=== PATIENT | female | born 1930 | race Caucasian/White ===

== ENCOUNTER 2019-05-27 12:20 | Inpatient (IN) | payer MEDICARE ==
--- NOTE | 2019-05-27 12:44 | CT ---
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 There are f oci of decreased attenuation in the periventricular white matter, consistent with chronic small vessel ischemic disease. No evidence of acute infarct, hemorrhage, midline shift or abnormal extra-axial fluid collections is seen. The ventricular size is appropriate and the basilar cisterns are patent. Postop changes of right craniotomy are redemonstrated. The visualized paranasal sinuses and mastoid air cells are well aerated. IMPRESSION: No CT evidence of acute intracranial process. Discussed over the telephone with ER physician Dr. Yann Arizmendi at 12:39 PM
[2019-05-27 13:03] LABS: #Lymphocytes 0.9 thou/uL (1.20-3.40); #Monocytes 0.8 thou/uL (0.11-0.59); #Neutrophils 6.2 thou/uL (1.40-6.50); %Basophils 0.6 % (0.0-1.0); %Eosinophils 0.2 % (0.0-10.0); %Lymphocytes 10.9 % (21.0-51.0); %Monocytes 9.7 % (0.0-10.0); %Neutrophils 78.7 % (42.0-75.0); Hemoglobin 13.2 g/dL (12.0-16.0); Mean Corpuscular HGB CONC 33.1 g/dL (32.0-36.0); Mean Corpuscular Hemoglobin 30.1 pg (27.0-31.0); Mean Corpuscular Volume 90.7 fL (78.0-98.0); Mean Platelet Volume 8.1 fL (7.4-10.4); Platelet Count 159 thou/uL (130-400); RBC Distribution Width 11.5 % (11.5-14.5); Red Blood Cell (RBC) Count 4.38 mill/uL (4.20-5.40); White Blood Cell (WBC) Count 7.8 thou/uL (4.8-10.8)
[2019-05-27 13:03] LABS: Bacteria/HPF 3+ HPF (None Seen); Bilirubin Negative (Negative); Blood, Urine Negative (Negative); Clarity Clear (Clear); Glucose, Urine (Dipstick) Normal (Negative); Leukocyte 250 Leu/uL (Negative); Nitrite Negative (Negative); Protein, Urine (Dipstick) 10 mg/dL (Neg-Trace); RBC/HPF 0-3 HPF (0-3); Squamous Epithelial None Seen HPF (0-3); Urobilinogen Normal mg/dL (Less than 2)
[2019-05-27 13:09] LABS: ALT (SGPT) Less than 7 U/L (8-55); AST (SGOT) 18 U/L (5-34); Albumin 3.9 g/dL (3.4-4.8); Alkaline Phosphatase 56 U/L (40-110); Anion Gap 11 mmol/L (10-20); BUN (Urea Nitrogen) 11 mg/dL (9.8-20.1); Bilirubin, Total 1.6 mg/dL (0.2-1.2); CK (CPK) 113 U/L (29-168); Calc. Creatinine Clearance 0 mL/min (70-130); Calcium 8.8 mg/dL (7.8-10.44); Carbon Dioxide 23 mmol/L (23-31); Chloride 93 mmol/L (98-107); Estimated GFR-MDRD 52; Globulin 2.8 g/dL (2.4-3.5); Glucose 111 mg/dL (83-110); Lipase 7 U/L (8-78); Potassium 4.1 mmol/L (3.5-5.1); Protein, Total 6.7 g/dL (6.0-8.3); Sodium 123 mmol/L (136-145)
--- NOTE | 2019-05-27 13:12 | RAD ---
XR Chest 1 View Portable HISTORY: Altered mental status, left-sided weakness COMPARISON: 05/25/2010 FINDINGS: The heart size is borderline. The aorta is tortuous. Left-sided pacemaker device is present. The emma gs are expanded with prominent interstitial markings. No lobar consolidation, pneumothoraces or large effusions are seen.
[2019-05-27] MEDS ORDERED: Ondansetron PF 4 MG/2 ML Vial IVP PRN (13:57)
[2019-05-27] MEDS ORDERED: Loperamide HCl 2 MG CAP PO PRN (13:57)
[2019-05-27] MEDS ORDERED: Ondansetron ODT 4 MG TAB PO PRN (13:57)
[2019-05-27] MEDS ORDERED: Bisacodyl 5 MG TAB PO PRN (13:57)
[2019-05-27] MEDS ORDERED: Acetaminophen 325 MG TAB PO PRN (13:57)
--- NOTE | 2019-05-27 14:01 | RAD ---
SHUNTOGRAM: Date: 05/27/2019 A total of 5 views obtained, including AP and lateral views of the skull with AP views of chest and a bdomen. INDICATION: Weakness. Evaluate for shunt. FINDINGS: Correlation is made to CT head dated 05/27/2019. Patient does not have a [employer] shunt catheter. There are postoperative changes involving the calvarium with postoperative changes in the right temporal bone and there are clippings seen at the base of the skull midline suggesting old aneurysm clip. Visualized lung santiago show vascular congestion and cardiomegaly with interstitial congestion. There are pacemaker leads in place. Bowel gas pattern is unremarkable with scattered stool and gas throughout the colon. IMPRESSION: Patient does not have a F[employer] REPORTER shunt catheter. POS: [facility]
[2019-05-27] MEDS ORDERED: diphenhydrAMINE 25 MG CAP PO PRN (14:02)
[2019-05-27] MEDS ORDERED: Labetalol HCl 100 MG/20 ML VIAL SLOW IVP PRN (14:02)
[2019-05-27] MEDS ORDERED: Docusate 100 MG CAP PO PRN (14:02)
[2019-05-27] MEDS ORDERED: Benzonatate 100 MG CAP PO PRN (14:02)
[2019-05-27] MEDS ORDERED: cefTRIAXone\\ROCEPHIN 1 GM VIAL ONE (14:08)
[2019-05-27] MEDS ORDERED: Diltiazem 125 MG/25 ML ONE (14:15)
[2019-05-27] MEDS ORDERED: Diltiazem 125 MG in Sodium Chloride 0.9% 100 ML IVPB SCH (14:30)
--- NOTE | 2019-05-27 14:35 | PDOC.HHP ---
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 Patient accompanied by and family who are able to aid in history. Patient with confusion which started last light, was not acting herself and suffered a fall out of bed. states that she hit her forehead on the bed, though no other trauma to limbs, there is not break in the skin or laceration. Patient with old and new bruising on the skin consistent with antiplatelent therapy and minor trauma. Patient alert to self, she knows she in in the hospital and knows her family at bedside. Patient very agitated and crawling out of bed trying to remove covers and clothes. Patient will speak in full in short sentences when asked simple questions, though she gets distracted very quickly and is fidgeting with the left arm. Patient not a tPA candidate for low NIH score and unknown timing. Patient with CT scan of the head that was negative for acute process. Patient has had UTI and currently on ABX, though patient and family do not recall the name. Patient does drink excessive fluids at baseline and states she is always sipping on something with water. Patient found to have to have hyponatremia with sodium of 123 on admission. Admitted to stroke unit for close management. Hospitalist ROS - Review of Systems All other systems reviewed; all pertinent +/- noted in HPI/Subj Hospitalist History - Past Medical History Source: patient, family, old records Cardiac: reports: AFIB, HTN. denies: CAD, CHF Pulmonary: denies: CVA/TIA/stroke PUBLICITY CONSULTANT: reports: Other (Cerebral aneurysm s/p shunt). denies: CVA - Past Surgical History Past Surgical History: reports: Other (PUBLICITY CONSULTANT shunt, aneurysm correction) - Family History Family History: reports: hypertension - Social History Smoking Status: Never smoker Alcohol: reports: None Drugs: reports: none Living Situation: With Family Domestic Violence: Negative Activity level: independent ambulation - Exam General Appearance: awake alert General - other findings: Restless, constantly moving and fidgeting Eye: PERRL, anicteric sclera ENT: normocephalic atraumatic, moist mucosa Neck: supple, symmetric, no lymphadenopathy Heart: no murmur, no gallops, no rubs, irregular Respiratory: CTAB, no wheezes, no rales, no ronchi, normal chest expansion Gastrointestinal: soft, non-tender, non-distended, normal bowel sounds, no guarding, no rigidity Extremities: no clubbing, no edema Skin: no lesions, no rashes Neurological: cranial nerve grossly intact, no focal deficits Neurological - other findings: Will not look to the left. Incoordinated left arm / hand Musculoskeletal: generalized weakness Psychiatric: oriented to person, oriented to place Psychiatric - other findings: agitated Hospitalist Results - Labs Result Diagrams: 05/27/19 12:28 05/27/19 12:28 Lab results: WBC 7.8 thou/uL (4.8-10.8) 05/27/19 12:28 Hgb 13.2 g/dL (12.0-16.0) 05/27/19 12:28 Hct 39.7 % (36.0-47.0) 05/27/19 12:28 MCV 90.7 fL (78.0-98.0) 05/27/19 12:28 Plt Count 159 thou/uL (130-400) 05/27/19 12:28 Neutrophils % 78.7 % (42.0-75.0) H 05/27/19 12:28 Sodium 123 mmol/L (136-145) L 05/27/19 12:28 Potassium 4.1 mmol/L (3.5-5.1) 05/27/19 12:28 Chloride 93 mmol/L (98-107) L 05/27/19 12:28 Carbon Dioxide 23 mmol/L (23-31) 05/27/19 12:28 BUN 11 mg/dL (9.8-20.1) 05/27/19 12:28 Creatinine 1.00 mg/dL (0.6-1.1) 05/27/19 12:28 Glucose 111 mg/dL (83-110) H 05/27/19 12:28 Calcium 8.8 mg/dL (7.8-10.44) 05/27/19 12:28 Total Bilirubin 1.6 mg/dL (0.2-1.2) H 05/27/19 12:28 AST 18 U/L (5-34) 05/27/19 12:28 ALT Less than 7 U/L (8-55) L 05/27/19 12:28 Alkaline Phosphatase 56 U/L (40-110) 05/27/19 12:28 Ammonia 19 umol/L (18-72) 05/27/19 13:12 Creatine Kinase 113 U/L (29-168) 05/27/19 12:28 Troponin I Less than 0.010 ng/mL (< 0.028) 05/27/19 12:28 B-Natriuretic Peptide 648.8 pg/mL (0-100) H 05/27/19 12:28 Serum Total Protein 6.7 g/dL (6.0-8.3) 05/27/19 12:28 Albumin 3.9 g/dL (3.4-4.8) 05/27/19 12:28 Lipase 7 U/L (8-78) L 05/27/19 12:28 Urine Ketones 20 mg/dL (Negative) A 05/27/19 12:43 Urine Blood Negative (Negative) 05/27/19 12:43 Urine Nitrite Negative (Negative) 05/27/19 12:43 Ur Leukocyte Esterase 250 Suzanne/uL (Negative) A 05/27/19 12:43 Urine RBC 0-3 HPF (0-3) 05/27/19 12:43 Urine WBC 11-20 HPF (0-3) A 05/27/19 12:43 Ur Squamous Epith Cells None Seen HPF (0-3) 05/27/19 12:43 Urine Bacteria 3+ HPF (None Seen) A 05/27/19 12:43 - Radiology Interpretation CT scan - head Status: image reviewed by nv Hospitalist H&P A/P - Problem (1) Acute CVA (cerebrovascular accident) Code(s): I63.9 - CEREBRAL INFARCTION, UNSPECIFIED Status: Acute (2) Tayo-neglect of left side Code(s): R41.4 - NEUROLOGIC NEGLECT SYNDROME Status: Acute (3) Fall Code(s): W19.XXXA - UNSPECIFIED FALL, INITIAL ENCOUNTER Status: Acute (4) Ataxia Code(s): R27.0 - ATAXIA, UNSPECIFIED Status: Acute (5) Afib Code(s): I48.91 - UNSPECIFIED ATRIAL FIBRILLATION Status: Acute (6) HTN (hypertension) Code(s): I10 - ESSENTIAL (PRIMARY) HYPERTENSION Status: Acute (7) HLD (hyperlipidemia) Code(s): E78.5 - HYPERLIPIDEMIA, UNSPECIFIED Status: Acute (8) Pacemaker Code(s): Z95.0 - PRESENCE OF CARDIAC PACEMAKER Status: Acute (9) Head trauma Code(s): S09.90XA - UNSPECIFIED INJURY OF HEAD, INITIAL ENCOUNTER Status: Acute (10) UTI (urinary tract infection) Status: Acute (11) Hyponatremia Code(s): E87.1 - HYPO-OSMOLALITY AND HYPONATREMIA Status: Acute (12) AMS (altered mental status) Code(s): R41.82 - ALTERED MENTAL STATUS, UNSPECIFIED Status: Acute - Plan Plan: Plan: Admit to medical unit with telemetry - stroke unit MRI brain to eval for acute ischemia Not a tPA candidate for unknown time of onset and low NIH score Echo Carotid US Shuntogram was negative for MOTOR VEHICLE EXAMINER shunt, not present Consider neurology consult pending above work up Afib with RVR, start Diltiazem drip as needed to control rate <110 BPM Lovenox for anticoagulation PRN medications for blood pressure control IV ABX for UTI Urine CX NS for hyponatremia, history consistent with tea and toast diet continue home medications as able, once family can provide the list of medications symptomatic medications to keep the patient calm GI PPX DVT PPX
[2019-05-27] MEDS ORDERED: Magnesium 2 GM/50 ML BAG (IN WATER) ONE (14:53)
[2019-05-27] MEDS ORDERED: Haloperidol Lactate 5 MG/ML VIAL IM SCH (15:00)
[2019-05-27] MEDS ORDERED: Haloperidol Lactate 5 MG/ML VIAL SLOW IVP PRN (15:00)
[2019-05-27] MEDS ORDERED: Heparin 5,000 UNITS/ML VIAL SC SCH (15:00)
--- NOTE | 2019-05-27 16:41 | ULT ---
CAROTID ULTRASOUND: 05/27/19 HISTORY: CVA symptoms. COMPARISON: None. TECHNIQUE: Gómez scale, color flow, Doppler imaging with spectral waveform analysis performed in the carotid and vertebral arteries. FINDINGS: RIGHT CAROTID: There is soft plaque in the common carotid artery, carotid bifurcation, and proximal internal caroti d artery. Peak systolic velocity of the common carotid artery is 62 cm/s. Peak systolic velocity of t he internal carotid artery is 70 cm/s. Systolic ICA to CCA ratio is 1.1. LEFT CAROTID: There is soft plaque in the common carotid artery, carotid bifurcation, and proximal internal caroti d artery. Component of calcified plaque is also suspected in the internal carotid artery. Peak systol ic velocity of the common carotid artery is 79 cm/s. Peak systolic velocity of the internal carotid a rtery is 80 cm/s. Systolic ICA to CCA ratio is 1.0. Right vertebral artery could not be assessed due to patient position. There is antegrade flow in the left vertebral artery. IMPRESSION: Atherosclerotic disease involving both carotid arteries. There does appear to be significant stenosis on the gómez scale images in the left internal carotid artery. Better interrogation with CT angiogram of the neck is recommended. POS: [facility]
[2019-05-27 17:27] VITALS: BMI 22.7
[2019-05-27] MEDS: Sodium Chloride 0.9% 1,000 ML IV SCH (17:42)
[2019-05-27] MEDS: Famotidine 20 MG TAB PO SCH (21:25)
[2019-05-27] MEDS: Enoxaparin Sodium 60 MG/0.6 ML SYRINGE SC SCH (21:25)
[2019-05-28 05:16] LABS: Anion Gap 14 mmol/L (10-20); BUN (Urea Nitrogen) 11 mg/dL (9.8-20.1); Calc. Creatinine Clearance 53 mL/min (70-130); Calcium 8.4 mg/dL (7.8-10.44); Carbon Dioxide 19 mmol/L (23-31); Chloride 97 mmol/L (98-107); Estimated GFR-MDRD 73; Glucose 97 mg/dL (83-110); Sodium 126 mmol/L (136-145)
[2019-05-28 05:47] LABS: Band 12 % (5-11); Hemoglobin 13.4 g/dL (12.0-16.0); Lymphocytes 18 % (21-51); MDiff Complete? YES; Mean Corpuscular HGB CONC 33.4 g/dL (32.0-36.0); Mean Corpuscular Hemoglobin 30.2 pg (27.0-31.0); Mean Corpuscular Volume 90.5 fL (78.0-98.0); Mean Platelet Volume 7.8 fL (7.4-10.4); Monocytes 11 % (0-10); Neutrophil 59 % (42-75); Platelet Count 152 thou/uL (130-400); RBC Distribution Width 11.3 % (11.5-14.5); Red Blood Cell (RBC) Count 4.42 mill/uL (4.20-5.40)
[2019-05-28] MEDS: Famotidine 20 MG TAB PO SCH ×2 (10:41→20:23)
[2019-05-28] MEDS: Enoxaparin Sodium 60 MG/0.6 ML SYRINGE SC SCH ×2 (10:41→20:23)
[2019-05-28] MEDS: Sodium Chloride 0.9% 1,000 ML IV SCH (10:41)
[2019-05-28] MEDS: cefTRIAXone\\ROCEPHIN 2 GM in Sodium Chloride 0.9% 100 ML IVPB SCH (14:29)
[2019-05-28] MEDS ORDERED: Digoxin 0.5 MG/2 ML AMP SLOW IVP SCH ×2 (15:00→20:00)
[2019-05-29 05:13] LABS: Anion Gap 15 mmol/L (10-20); BUN (Urea Nitrogen) 12 mg/dL (9.8-20.1); Calc. Creatinine Clearance 50 mL/min (70-130); Calcium 9.1 mg/dL (7.8-10.44); Carbon Dioxide 22 mmol/L (23-31); Chloride 96 mmol/L (98-107); Estimated GFR-MDRD 68; Glucose 114 mg/dL (83-110); Potassium 3.8 mmol/L (3.5-5.1); Sodium 129 mmol/L (136-145)
--- NOTE | 2019-05-29 08:46 | PRG ---
DATE OF SERVICE: 05/28/2019 SUBJECTIVE: The patient is seen and examined at the bedside. The patient's and the daughter are present in the room during my visit. OBJECTIVE: VITAL SIGNS: Blood pressure is 145/74, pulse is 76, respirations 14, O2 saturation is 98 on 2 L by nasal cannula. HEENT: Eyes, pupils are responding to light properly. Oral mucosa is slightly dry. LUNGS: Clear. HEART: S1 and S2, irregularly irregular. No S3. No S4. ABDOMEN: Soft and nontender. EXTREMITIES: No clubbing, cyanosis or edema. NEUROLOGICAL: She is able to answer my questions and she is neglecting the left side. She has quite significant weakness in the left upper extremity approximately 3/5 and more weakness in the left lower extremity 2/5, but she follows my commands. LABORATORY DATA: Normal white count. Chemistry; sodium 126, potassium 4.0, chloride 97, CO2 of 19, BUN 11, creatinine 0.75, glucose 97, and calcium 8.4. BNP was 648.8 yesterday. Urine culture is growing gram-negative rods, and one out of 2 blood cultures is growing gram-positive cocci in clusters. Echocardiogram showed ejection fraction of the left ventricle is estimated at 50% to 55%. There is atrial fibrillation during this study. Left atrium is severely dilated. There is moderate aortic insufficiency, moderate tricuspid regurgitation, and severely elevated pulmonary artery pressure. IMPRESSION: 1. Acute cerebrovascular accident, most likely in right middle cerebral artery distribution with left-sided paresis with hemineglect of the left side. 2. Status post fall. 3. Atrial fibrillation with rapid ventricular response. 4. Hypertension. 5. Hyperlipidemia. 6. Pacemaker. 7. Head trauma. 8. Urinary tract infection with gram-negative rods. 9. 1 out of 2 blood cultures growing gram-positive cocci in clusters. 10. Hyponatremia. 11. Altered mental status secondary to #1. PLAN: She is not able to have MRI because of her pacemaker incompatibility. She was not a tPA candidate for, of note, time of onset and low NIH score. We are going to start her on digoxin 0.25 mg IV push now, then 0.125 mg IV push in 6 hours, then 0.125 mg p.o. once a day. We will stop her Cardizem drip 1 hour after the digoxin is pushed, and hopefully, her Coreg will control her. Her third generation TSH came back normal. Also, we will obtain a cortisol level. I am going to continue the Rocephin for now until we have more information about her cultures. This should cover her urine. I am not sure about gram-positive cocci, this might be Staph, so as soon as we have more information about the blood cultures, we will make a change. Also, this could be a coagulase-negative Staph, which is a common contaminant, so we will make decision as soon as more information is available. Also, we will check serum osmolality and cortisol level with urine lytes. I am going to restrict her oral fluid intake to 1000 mL and I am going to stop IV fluids because her BNP is elevated, which is suggestive of some congestive heart failure. We will continue PT and OT. We will continue her Lovenox 60 mg subcutaneously twice a day and we will get shoe caser to arrange assisted unit for PT and OT. Job ID: [id number]
[2019-05-29] MEDS ORDERED: Famotidine 20 MG TAB PO SCH (09:00)
[2019-05-29] MEDS: Digoxin 0.125 MG TAB PO SCH (09:28)
[2019-05-29] MEDS: Famotidine 20 MG TAB PO SCH ×2 (09:29→20:47)
[2019-05-29] MEDS: Enoxaparin Sodium 60 MG/0.6 ML SYRINGE SC SCH ×2 (09:33→20:47)
[2019-05-29] MEDS: cefTRIAXone\\ROCEPHIN 2 GM in Sodium Chloride 0.9% 100 ML IVPB SCH (15:21)
--- NOTE | 2019-05-29 16:46 | CT ---
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 There are f oci of decreased attenuation in the periventricular white matter, consistent with chronic small vessel ischemic disease. No evidence of acute infarct, hemorrhage, midline shift or abnormal extra-axial fluid collections is seen. The ventricular size is appropriate and the basilar cisterns are patent. Postop changes of right craniotomy are redemonstrated. The visualized paranasal sinuses and mastoid air cells are well aerated. IMPRESSION: No CT evidence of acute intracranial process.
--- NOTE | 2019-05-29 20:41 | PDOC.HOSPP ---
- Subjective Encounter Date: 05/29/19 Encounter Time: 09:00 Subjective: overnight, per nurse started exhibiting spells of fear and screaming, that per is new. on encounter, lying in bed and appears confused. responds to yes /no questions and has spells of staring without answering. - Objective Vital Signs & Weight: Vital Signs (12 hours) Temp Pulse Pulse Resp BP BP Pulse Ox 05/29/19 19:25 97.8 F 108 H 14 148/79 H 98 05/29/19 15:31 98.1 F 103 H 16 174/92 H 100 05/29/19 13:58 100 167/83 H 05/29/19 11:29 97.6 F 89 16 161/84 H 94 L 05/29/19 09:28 84 Weight Weight 140 lb 11.2 oz I&O: 05/28/19 05/29/19 05/30/19 06:59 06:59 06:59 Intake Total 135 2424.5 1076 Output Total 500 1900 460 Balance -365 524.5 616 Result Diagrams: 05/28/19 04:42 05/30/19 04:30 Hospitalist ROS - Review of Systems Constitutional: reports: weakness, malaise, other. denies: fever, chills, sweats Eyes: denies: vision change Respiratory: denies: cough, dry, shortness of breath, hemoptysis, SOB with excertion, pleuritic pain, sputum, wheezing, other Cardiovascular: denies: chest pain, palpitations Gastrointestinal: denies: nausea, vomiting, abdominal pain, diarrhea, constipation Genitourinary: denies: dysuria, frequency, incontinence, hematuria, retention Neurological: reports: change in speech, confusion. denies: weakness All other systems reviewed; all pertinent +/- noted in HPI/Subj - Medication Medications: Active Medications Generic Name Dose Route Start Last Admin Trade Name Freq PRN Reason Stop Dose Admin Digoxin 0.125 mg 05/29/19 09:00 05/29/19 09:28 Lanoxin PO 0.125 mg DAILY KAYLI Administration Enoxaparin Sodium 60 mg 05/27/19 21:00 05/29/19 09:33 Lovenox SC 60 mg 0900,2100 KAYLI Administration Famotidine 20 mg 05/27/19 21:00 05/29/19 09:29 Pepcid PO 20 mg BID KAYLI Administration Ceftriaxone Sodium 2 gm/ 100 mls @ 200 mls/hr 05/28/19 14:00 05/29/19 15:21 Sodium Chloride IVPB 100 mls Q24HR KAYLI Administration Labetalol HCl 10 mg 05/27/19 14:02 05/29/19 01:58 Normodyne SLOW IVP 10 mg Q4H PRN Administration SBP Greater Than 180 Sodium Chloride 10 ml 05/28/19 21:00 05/29/19 09:29 Flush - Normal Saline IVF 10 ml Q12HR KAYLI Administration - Exam General Appearance: awake alert, ill appearing General - other findings: appears confused with staring spells and dysarthria Eye: PERRL, anicteric sclera ENT: normocephalic atraumatic Neck: supple, symmetric, no JVD Heart: no murmur, no gallops, irregular Heart - other findings: rate 80-90s Respiratory: CTAB, no wheezes, no rales, no ronchi, normal chest expansion, no tachypnea Gastrointestinal: soft, non-tender, non-distended, normal bowel sounds Extremities: no edema Psychiatric: not oriented. negative: normal behavior Hosp A/P - Plan #confusion -likely infectious / medication induced delirium; however, will repeat CT scan to rule out late intracranial hemorrhage/ischemia #UTI will continue ABx pending susceptibilities #BCx likely contaminant; will repeat
[2019-05-29] MEDS: Melatonin 3 MG TAB PO PRN (20:48)
[2019-05-30 05:08] LABS: Anion Gap 15 mmol/L (10-20); BUN (Urea Nitrogen) 13 mg/dL (9.8-20.1); Calc. Creatinine Clearance 53 mL/min (70-130); Calcium 8.7 mg/dL (7.8-10.44); Carbon Dioxide 24 mmol/L (23-31); Chloride 94 mmol/L (98-107); Estimated GFR-MDRD 72; Glucose 97 mg/dL (83-110); Potassium 3.7 mmol/L (3.5-5.1); Sodium 129 mmol/L (136-145)
[2019-05-30] MEDS: Famotidine 20 MG TAB PO SCH ×2 (08:42→20:54)
[2019-05-30] MEDS: Losartan 25 MG TAB PO SCH (08:42)
[2019-05-30] MEDS: Spironolactone 25 MG TAB PO SCH (08:43)
[2019-05-30] MEDS: Digoxin 0.125 MG TAB PO SCH (08:43)
[2019-05-30] MEDS: Carvedilol 25 MG TAB PO SCH ×2 (08:43→20:54)
[2019-05-30] MEDS: Enoxaparin Sodium 60 MG/0.6 ML SYRINGE SC SCH (08:46)
[2019-05-30] MEDS ORDERED: Amitriptyline HCl 25 MG TAB PO SCH (13:30)
[2019-05-30] MEDS ORDERED: Levothyroxine Sodium 88 MCG TAB PO SCH (13:30)
--- NOTE | 2019-05-30 16:00 | PDOC.PALCO ---
Palliative Care Consult - Consult Details Requesting Physician: Dr Perez Reason for Consult: symptom management, complex decision-making Family Members Present: None - Pertinent HPI 86 year old female who had onset of confusion with fall out of bed. Presented to the emergency room for evaluation. CT in emergency room negative. Family also reports increase in thirst and water consumption, emergency room also identified low sodium. Admitted to stroke for further evaluation. Confusion is intermittent, and paired with significant fear. These episodes are intermittent , but as noted now in nature. - Pertinent PMH Hypertension - Social History Smoking Status: Never smoker Smoking: no tobacco exposure Alcohol Use: none Drug Use History: none Living Situation: - Medications MAR Reviewed: Yes - Allergies Allergies/Adverse Reactions: Allergies Allergy/AdvReac Type Severity Reaction Status Date / Time amiodarone Allergy Stomach Verified 05/27/19 16:18 Ache lactose AdvReac Mild Diarrhea Verified 05/30/19 10:12 - Subjective At time of assessment patient was unable to participate in adequate ROS secondary to episode of confusion. - ROS Non Response: due to mental status - Objective Vital Signs: Vital Signs - Most Recent Temp Pulse Resp BP Pulse Ox 97.8 F 105 H 12 161/94 H 96 05/30/19 11:19 05/30/19 12:20 05/30/19 11:19 05/30/19 12:20 05/30/19 11:19 Palliative Performance Scale: 50 - Physical Exam Constitutional: confusion, ill appearing, mild distress HEENT: EOMI, moist MMs, PERRLA Respiratory: clear to auscultation bilateral, no wheezing, unlabored breathing Cardiovascular: irregular Gastrointestinal: no distention, positive bowel sounds Genitourinary: incontinent Musculoskeletal: pulses present Neurology: moves all 4 limbs, no focal deficits Deviation from normal: Crainial nerves intact. During episode unequal catering server, but returned to baseli Skin: cap refill <2 seconds, bruising, fragile Psychiatric: A&O x 3 Deviation from normal: confused at time of assessement - Problem List (1) Palliative care encounter Code(s): Z51.5 - ENCOUNTER FOR PALLIATIVE CARE Current Visit: Yes Status: Acute (2) Physical deconditioning Code(s): R53.81 - OTHER MALAISE Current Visit: Yes Status: Acute (3) AMS (altered mental status) Code(s): R41.82 - ALTERED MENTAL STATUS, UNSPECIFIED Current Visit: Yes Status: Acute (4) Acute CVA (cerebrovascular accident) Code(s): I63.9 - CEREBRAL INFARCTION, UNSPECIFIED Current Visit: Yes Status : Acute (5) Fall Code(s): W19.XXXA - UNSPECIFIED FALL, INITIAL ENCOUNTER Current Visit: Yes Status: Acute (6) Hyponatremia Code(s): E87.1 - HYPO-OSMOLALITY AND HYPONATREMIA Current Visit: Yes Status : Acute - Plan/Recommendations Plan: Initial assessment, Dr Perez ordered a CT. He also mentioned in his note delirium related to medication. Will reach out to Harleen Delatorre palliative care pharmacist to review medications and identify any outliers that could be contributing to intermittent altered mental status. Will revisit goals of care with / after CT results and medication is reviewed. Notified Dr Chris Reno galvanizing pot runner also present, please refer to notes in note section. [60] minutes spent on this encounter with >50% of the time in counseling and coordination of care. Thank you for this very appropriate consult.
[2019-05-30] MEDS: Apixaban 2.5 MG TAB PO SCH (20:54)
[2019-05-30] MEDS: Latanoprost 0.005% Ophth Soln 2.5 ml Bottle EA EYE SCH (21:29)
[2019-05-30] MEDS: Melatonin 3 MG TAB PO PRN (21:29)
--- NOTE | 2019-05-30 22:15 | PDOC.HOSPP ---
- Subjective Encounter Date: 05/30/19 Encounter Time: 09:00 Subjective: overnight, calmer than the night before though continues to have waxing and waning episodes. This morning, alert and oriented x 3. Later in the afternoon, not oriented to place. Discharge pending - Objective Vital Signs & Weight: Vital Signs (12 hours) Temp Pulse Resp BP Pulse Ox 05/30/19 20:59 97.7 F 100 16 146/89 H 95 05/30/19 16:03 97.7 F 87 16 152/71 H 98 05/30/19 12:20 105 H 161/94 H 05/30/19 11:19 97.8 F 96 12 192/103 H 96 Weight Weight 140 lb 11.2 oz I&O: 05/29/19 05/30/19 05/31/19 06:59 06:59 06:59 Intake Total 2424.5 1076 680 Output Total 1900 460 Balance 524.5 616 680 Result Diagrams: 05/28/19 04:42 05/30/19 04:30 Hospitalist ROS - Review of Systems Constitutional: denies: fever, chills, sweats, weakness, malaise, other Respiratory: denies: cough, dry, shortness of breath, hemoptysis, SOB with excertion, pleuritic pain, sputum, wheezing, other Cardiovascular: denies: chest pain, palpitations, orthopnea, paroxysmal noc. dyspnea, edema, light headedness, other Gastrointestinal: denies: nausea, vomiting, abdominal pain, diarrhea, constipation, melena, hematochezia, other Genitourinary: denies: dysuria, frequency, incontinence, hematuria, retention, other Neurological: denies: weakness, numbness, incoordination, change in speech, confusion, seizures, other - Medication Medications: Active Medications Generic Name Dose Route Start Last Admin Trade Name Freq PRN Reason Stop Dose Admin Apixaban 2.5 mg 05/30/19 21:00 05/30/19 20:54 Eliquis PO 2.5 mg BID KAYLI Administration Carvedilol 25 mg 05/30/19 09:00 05/30/19 20:54 Coreg PO 25 mg BID KAYLI Administration Digoxin 0.125 mg 05/29/19 09:00 05/30/19 08:43 Lanoxin PO 0.125 mg DAILY KAYLI Administration Famotidine 20 mg 05/27/19 21:00 05/30/19 20:54 Pepcid PO 20 mg BID KAYLI Administration Ciprofloxacin/Dextrose 400 mg/ 200 mls @ 200 mls/hr 05/30/19 09:00 05/30/19 20:54 Device IVPB 06/01/19 21:59 200 mls Q12HR KAYLI Administration Labetalol HCl 10 mg 05/27/19 14:02 05/29/19 01:58 Normodyne SLOW IVP 10 mg Q4H PRN Administration SBP Greater Than 180 Latanoprost 1 drop 05/30/19 21:00 05/30/19 21:29 Xalatan 0.005% Ophth Soln EA EYE 1 drop HS KAYLI Administration Losartan Potassium 12.5 mg 05/30/19 09:00 05/30/19 08:42 Cozaar PO 12.5 mg DAILY KAYLI Administration Melatonin 3 mg 05/27/19 14:02 05/30/19 21:29 Melatonin PO 3 mg HSPRN PRN Administration Insomnia Sodium Chloride 10 ml 05/28/19 21:00 05/30/19 21:00 Flush - Normal Saline IVF 10 ml Q12HR KAYLI Administration Spironolactone 12.5 mg 05/30/19 09:00 05/30/19 08:43 Aldactone PO 12.5 mg DAILY KAYLI Administration - Exam General Appearance: NAD, awake alert, ill appearing Neck: no JVD Heart: no murmur, no gallops, irregular Heart - other findings: rate 90-100s Respiratory: CTAB, no wheezes, no rales, no ronchi Gastrointestinal: soft, non-tender, non-distended, normal bowel sounds Extremities: no edema Neurological: cranial nerve grossly intact, no focal deficits. negative: facial droop, speech deficit Neurological - other findings: waxing and waning mentation Psychiatric: A&O x 3, flat affect Hosp A/P - Plan #delirium -likely infection / medication induced delirium -repeat CTH unremarkable -after change to ciprofloxacin, improved mentation though fluoroquinolones, similarly to the cephalosporins the patient was on previously, can cause confusion -continue to follow -also per pharmacist Ms. Rivera, recommends that PCP taper and stop Elavil based on Beer's criteria #enterococcus UTI changed from cephalosporin to cipro after susceptibilites #BCx likely contaminant
[2019-05-31] MEDS ORDERED: Haloperidol Lactate 5 MG/ML VIAL SLOW IVP SCH ×2 (03:00→20:15)
[2019-05-31 05:54] LABS: Anion Gap 14 mmol/L (10-20); BUN (Urea Nitrogen) 15 mg/dL (9.8-20.1); Calc. Creatinine Clearance 48 mL/min (70-130); Calcium 8.7 mg/dL (7.8-10.44); Carbon Dioxide 24 mmol/L (23-31); Chloride 92 mmol/L (98-107); Estimated GFR-MDRD 65; Glucose 103 mg/dL (83-110); Magnesium 1.6 mg/dL (1.6-2.6); Potassium 3.8 mmol/L (3.5-5.1); Sodium 126 mmol/L (136-145)
[2019-05-31] MEDS: Levothyroxine Sodium 88 MCG TAB PO SCH (06:07)
[2019-05-31 06:24] LABS: Elliptocytes SLIGHT = 2-5 cells (100X) (0-1/hpf); Eosinophils 1 % (0-10); Hemoglobin 13.3 g/dL (12.0-16.0); Lymphocytes 31 % (21-51); MDiff Complete? YES; Mean Corpuscular HGB CONC 34.6 g/dL (32.0-36.0); Mean Corpuscular Hemoglobin 31.4 pg (27.0-31.0); Mean Corpuscular Volume 90.7 fL (78.0-98.0); Mean Platelet Volume 7.9 fL (7.4-10.4); Monocytes 4 % (0-10); Neutrophil 64 % (42-75); Platelet Count 166 thou/uL (130-400); Platelet Morphology Comment Appears Adequate; RBC Distribution Width 11.5 % (11.5-14.5); Red Blood Cell (RBC) Count 4.25 mill/uL (4.20-5.40); White Blood Cell (WBC) Count 8.9 thou/uL (4.8-10.8)
[2019-05-31] MEDS: Famotidine 20 MG TAB PO SCH ×2 (09:46→20:09)
[2019-05-31] MEDS: Carvedilol 25 MG TAB PO SCH ×2 (09:46→20:22)
[2019-05-31] MEDS: Digoxin 0.125 MG TAB PO SCH (09:46)
[2019-05-31] MEDS: Amitriptyline HCl 25 MG TAB PO SCH (09:47)
[2019-05-31] MEDS: Spironolactone 25 MG TAB PO SCH (09:47)
[2019-05-31] MEDS: Losartan 25 MG TAB PO SCH (09:47)
[2019-05-31] MEDS: Apixaban 2.5 MG TAB PO SCH ×2 (10:03→20:22)
[2019-05-31] MEDS: Sodium Chloride 0.9% 1,000 ML IV SCH ×2 (10:03→21:25)
--- NOTE | 2019-05-31 12:34 | PDOC.HOSPP ---
- Subjective Encounter Date: 05/31/19 Encounter Time: 12:32 Subjective: Ms. Clifford was seen today in follow-up of UTI and confusion. She does not have any complaints today. She is oriented to person, place and time, as well as situation. - Objective Vital Signs & Weight: Vital Signs (12 hours) Temp Pulse Pulse Pulse Resp BP BP 05/31/19 11:48 97.4 F L 80 16 05/31/19 09:48 88 76 164/82 H 153/86 H 05/31/19 09:46 90 05/31/19 08:15 99.0 F 90 16 BP Pulse Ox 05/31/19 11:48 141/74 H 99 05/31/19 09:48 05/31/19 09:46 05/31/19 08:15 150/88 H 96 Weight Weight 140 lb 11.2 oz I&O: 05/30/19 05/31/19 06/01/19 06:59 06:59 06:59 Intake Total 1076 1240 750 Output Total 460 500 350 Balance 616 740 400 Result Diagrams: 05/31/19 05:20 05/31/19 05:20 Hospitalist ROS - Medication Medications: Active Medications Generic Name Dose Route Start Last Admin Trade Name Freq PRN Reason Stop Dose Admin Amitriptyline HCl 25 mg 05/31/19 09:00 05/31/19 09:47 Elavil PO 25 mg DAILY KAYLI Administration Apixaban 2.5 mg 05/30/19 21:00 05/31/19 10:03 Eliquis PO 2.5 mg BID KAYLI Administration Carvedilol 25 mg 05/30/19 09:00 05/31/19 09:46 Coreg PO 25 mg BID KAYLI Administration Digoxin 0.125 mg 05/29/19 09:00 05/31/19 09:46 Lanoxin PO 0.125 mg DAILY KAYLI Administration Famotidine 20 mg 05/27/19 21:00 05/31/19 09:46 Pepcid PO 20 mg BID KAYLI Administration Sodium Chloride 1,000 mls @ 70 mls/hr 05/31/19 07:00 05/31/19 10:03 Normal Saline 0.9% IV 1,000 mls .[id number] KAYLI Administration Labetalol HCl 10 mg 05/27/19 14:02 05/29/19 01:58 Normodyne SLOW IVP 10 mg Q4H PRN Administration SBP Greater Than 180 Latanoprost 1 drop 05/30/19 21:00 05/30/19 21:29 Xalatan 0.005% Ophth Soln EA EYE 1 drop HS KAYLI Administration Levothyroxine Sodium 88 mcg 05/31/19 06:00 05/31/19 06:07 Synthroid PO 88 mcg 0600 KAYLI Administration Losartan Potassium 12.5 mg 05/30/19 09:00 05/31/19 09:47 Cozaar PO 12.5 mg DAILY KAYLI Administration Melatonin 3 mg 05/27/19 14:02 05/30/19 21:29 Melatonin PO 3 mg HSPRN PRN Administration Insomnia Sodium Chloride 10 ml 05/28/19 21:00 05/31/19 09:47 Flush - Normal Saline IVF 10 ml Q12HR KAYLI Administration Sodium Chloride 10 ml 05/28/19 14:14 05/31/19 02:56 Flush - Normal Saline IVF 10 ml PRN PRN Administration Saline Flush Spironolactone 12.5 mg 05/30/19 09:00 05/31/19 09:47 Aldactone PO 12.5 mg DAILY KAYLI Administration - Exam Heart: RRR, no murmur, no gallops, no rubs, normal peripheral pulses Respiratory: CTAB, no wheezes, no rales, no ronchi, normal chest expansion, no tachypnea, normal percussion Gastrointestinal: soft, non-tender, non-distended, normal bowel sounds, no palpable masses, no hepatomegaly Extremities: no cyanosis, no edema Hosp A/P (1) Metabolic encephalopathy Code(s): G93.41 - METABOLIC ENCEPHALOPATHY Status: Acute (2) Afib Code(s): I48.91 - UNSPECIFIED ATRIAL FIBRILLATION Status: Acute (3) HTN (hypertension) Code(s): I10 - ESSENTIAL (PRIMARY) HYPERTENSION Status: Acute (4) Hyponatremia Code(s): E87.1 - HYPO-OSMOLALITY AND HYPONATREMIA Status: Acute (5) UTI (urinary tract infection) Status: Acute - Plan * Metabolic encephalopathy- this continues to wax and wane. ? New baseline?. * Hyponatremia- the patient says this is chronic, but can not remember what level her serum sodium usually is- Will check urine and serum osmolality, as well as a serum sodium * UTI- urine culture is growing Enterobacter cloacea- which is sensitive to Floroquinolones- will continue Cipro, but transition her to oral * HTN- blood pressure is stable * AFIB- her heart rate is stable, and she is on Eliquis for CVA prevention * Awaiting intermediate transfer
[2019-05-31] MEDS: Melatonin 3 MG TAB PO PRN (20:10)
[2019-05-31] MEDS: Cipro 250 MG TAB PO SCH (20:10)
[2019-05-31] MEDS: Latanoprost 0.005% Ophth Soln 2.5 ml Bottle EA EYE SCH (20:23)
[2019-06-01] MEDS: Sodium Chloride 0.9% 1,000 ML IV SCH (04:18)
[2019-06-01 05:37] LABS: Anion Gap 9 mmol/L (10-20); BUN (Urea Nitrogen) 14 mg/dL (9.8-20.1); Calc. Creatinine Clearance 48 mL/min (70-130); Calcium 8.3 mg/dL (7.8-10.44); Carbon Dioxide 27 mmol/L (23-31); Chloride 97 mmol/L (98-107); Estimated GFR-MDRD 65; Glucose 99 mg/dL (83-110); Potassium 3.7 mmol/L (3.5-5.1); Sodium 129 mmol/L (136-145)
[2019-06-01] MEDS: Cipro 250 MG TAB PO SCH ×2 (05:37→20:02)
[2019-06-01] MEDS: Levothyroxine Sodium 88 MCG TAB PO SCH (05:37)
[2019-06-01] MEDS: Digoxin 0.125 MG TAB PO SCH (09:48)
[2019-06-01] MEDS: Losartan 25 MG TAB PO SCH (09:51)
[2019-06-01] MEDS: Apixaban 2.5 MG TAB PO SCH ×2 (09:51→20:02)
[2019-06-01] MEDS: Famotidine 20 MG TAB PO SCH ×2 (09:54→20:02)
[2019-06-01] MEDS: Amitriptyline HCl 25 MG TAB PO SCH (09:54)
[2019-06-01] MEDS: Spironolactone 25 MG TAB PO SCH (09:55)
[2019-06-01] MEDS: Carvedilol 25 MG TAB PO SCH ×2 (09:55→20:02)
[2019-06-01] MEDS ORDERED: diphenhydrAMINE 30 GM TUBE TOP PRN (11:11)
--- NOTE | 2019-06-01 11:24 | PDOC.HOSPP ---
- Subjective Encounter Date: 06/01/19 Encounter Time: 11:21 Subjective: Ms. Clifford was seen today in follow-up of metabolic encephalopathy. She does not have any complaints. She continues to have episodes of confusion. - Objective Vital Signs & Weight: Vital Signs (12 hours) Temp Pulse Resp BP Pulse Ox 06/01/19 09:48 79 05/31/19 23:58 98.5 F 101 H 20 175/96 H 97 Weight Weight 140 lb 11.2 oz I&O: 05/31/19 06/01/19 06/02/19 06:59 06:59 06:59 Intake Total 1240 2250 Output Total 500 350 Balance 740 1900 Result Diagrams: 05/31/19 05:20 06/01/19 05:05 Hospitalist ROS - Medication Medications: Active Medications Generic Name Dose Route Start Last Admin Trade Name Freq PRN Reason Stop Dose Admin Apixaban 2.5 mg 05/30/19 21:00 06/01/19 09:51 Eliquis PO 2.5 mg BID KAYLI Administration Carvedilol 25 mg 05/30/19 09:00 06/01/19 09:55 Coreg PO 25 mg BID KAYLI Administration Ciprofloxacin 500 mg 05/31/19 20:00 06/01/19 05:37 Cipro PO 500 mg BID@0600,2000 KAYLI Administration Digoxin 0.125 mg 05/29/19 09:00 06/01/19 09:48 Lanoxin PO 0.125 mg DAILY KAYLI Administration Famotidine 20 mg 05/27/19 21:00 06/01/19 09:54 Pepcid PO 20 mg BID KAYLI Administration Labetalol HCl 10 mg 05/27/19 14:02 05/29/19 01:58 Normodyne SLOW IVP 10 mg Q4H PRN Administration SBP Greater Than 180 Latanoprost 1 drop 05/30/19 21:00 05/31/19 20:23 Xalatan 0.005% Ophth Soln EA EYE Not Given HS KAYLI Levothyroxine Sodium 88 mcg 05/31/19 06:00 06/01/19 05:37 Synthroid PO 88 mcg 0600 KAYLI Administration Losartan Potassium 12.5 mg 05/30/19 09:00 06/01/19 09:51 Cozaar PO 12.5 mg DAILY KAYLI Administration Melatonin 3 mg 05/27/19 14:02 05/31/19 20:10 Melatonin PO 3 mg HSPRN PRN Administration Insomnia Sodium Chloride 10 ml 05/28/19 21:00 06/01/19 11:11 Flush - Normal Saline IVF Not Given Q12HR KAYLI Sodium Chloride 10 ml 05/28/19 14:14 05/31/19 02:56 Flush - Normal Saline IVF 10 ml PRN PRN Administration Saline Flush Spironolactone 12.5 mg 05/30/19 09:00 06/01/19 09:55 Aldactone PO 12.5 mg DAILY KAYLI Administration - Exam Eye: PERRL Heart: RRR, no murmur, no gallops, no rubs, normal peripheral pulses Respiratory: CTAB, no wheezes, no rales, no ronchi, normal chest expansion, no tachypnea Gastrointestinal: soft, non-tender, non-distended, normal bowel sounds, no palpable masses, no hepatomegaly Extremities: no cyanosis, no clubbing, no edema Hosp A/P (1) Metabolic encephalopathy Code(s): G93.41 - METABOLIC ENCEPHALOPATHY Status: Acute (2) Afib Code(s): I48.91 - UNSPECIFIED ATRIAL FIBRILLATION Status: Acute (3) HTN (hypertension) Code(s): I10 - ESSENTIAL (PRIMARY) HYPERTENSION Status: Acute (4) Hyponatremia Code(s): E87.1 - HYPO-OSMOLALITY AND HYPONATREMIA Status: Acute (5) UTI (urinary tract infection) Status: Acute - Plan * Metabolic encephalopathy- will decrease her dose of Elavil, and change it to q hs. Will also discontinue Banadryl, and use Benadryl cream instead for itching. Will also consider discontinuing telemetry monitoring as well * Hyponatremia- this could be due to poor oral intake- will liberalize her diet to regular * UTI- urine culture is growing Enterobacter cloacea- continue Cipro a few more days * HTN- blood pressure is stable * AFIB- her heart rate is stable, and she is on Eliquis for CVA prevention * Awaiting senior living transfer
[2019-06-01] MEDS: Latanoprost 0.005% Ophth Soln 2.5 ml Bottle EA EYE SCH (20:02)
[2019-06-01] MEDS: Melatonin 3 MG TAB PO PRN (20:02)
[2019-06-01] MEDS ORDERED: Amitriptyline HCl 10 MG TAB PO SCH (21:00)
[2019-06-02] MEDS: Cipro 250 MG TAB PO SCH (05:14)
[2019-06-02] MEDS: Levothyroxine Sodium 88 MCG TAB PO SCH (05:14)
[2019-06-02] MEDS: Digoxin 0.125 MG TAB PO SCH (08:10)
[2019-06-02] MEDS: Famotidine 20 MG TAB PO SCH (08:11)
[2019-06-02] MEDS: Losartan 25 MG TAB PO SCH (08:12)
[2019-06-02] MEDS: Apixaban 2.5 MG TAB PO SCH (08:13)
[2019-06-02] MEDS: Carvedilol 25 MG TAB PO SCH (08:13)
[2019-06-02] MEDS: Spironolactone 25 MG TAB PO SCH (08:13)
[2019-06-02] MEDS ORDERED: Amlodipine 5 MG TAB PO SCH (09:00)
--- NOTE | 2019-06-02 14:30 | PDOC.HOSPP ---
- Subjective Encounter Date: 06/02/19 Encounter Time: 14:27 Subjective: Ms. Clifford was seen today in follow-up of metabolic encephalopathy. She does not have any complaints, and appears stable. - Objective Vital Signs & Weight: Vital Signs (12 hours) Temp Pulse Pulse Pulse Resp BP BP 06/02/19 11:16 98.4 F 78 18 06/02/19 09:40 71 74 166/79 H 06/02/19 08:11 79 176/88 H 06/02/19 08:10 79 06/02/19 07:55 97.9 F 79 18 06/02/19 05:00 98.5 F 78 20 BP BP Pulse Ox 06/02/19 11:16 156/84 H 96 06/02/19 09:40 143/64 H 06/02/19 08:11 06/02/19 08:10 06/02/19 07:55 176/88 H 98 06/02/19 05:00 162/93 H 97 Weight Weight 140 lb 11.2 oz I&O: 06/01/19 06/02/19 06/03/19 06:59 06:59 06:59 Intake Total 2250 506 Output Total 350 Balance 1900 506 Result Diagrams: 05/31/19 05:20 06/01/19 05:05 Hospitalist ROS - Medication Medications: Active Medications Generic Name Dose Route Start Last Admin Trade Name Freq PRN Reason Stop Dose Admin Amitriptyline HCl 10 mg 06/01/19 21:00 06/01/19 20:02 Elavil PO 10 mg HS KAYLI Administration Amlodipine Besylate 5 mg 06/02/19 09:00 06/02/19 08:11 Norvasc PO 5 mg DAILY KAYLI Administration Apixaban 2.5 mg 05/30/19 21:00 06/02/19 08:13 Eliquis PO 2.5 mg BID KAYLI Administration Carvedilol 25 mg 05/30/19 09:00 06/02/19 08:13 Coreg PO 25 mg BID KAYLI Administration Ciprofloxacin 500 mg 05/31/19 20:00 06/02/19 05:14 Cipro PO 500 mg BID@0600,2000 KAYLI Administration Digoxin 0.125 mg 05/29/19 09:00 06/02/19 08:10 Lanoxin PO 0.125 mg DAILY KAYLI Administration Famotidine 20 mg 05/27/19 21:00 06/02/19 08:11 Pepcid PO 20 mg BID KAYLI Administration Labetalol HCl 10 mg 05/27/19 14:02 05/29/19 01:58 Normodyne SLOW IVP 10 mg Q4H PRN Administration SBP Greater Than 180 Latanoprost 1 drop 05/30/19 21:00 06/01/19 20:02 Xalatan 0.005% Ophth Soln EA EYE Not Given HS KAYLI Levothyroxine Sodium 88 mcg 05/31/19 06:00 06/02/19 05:14 Synthroid PO 88 mcg 0600 KAYLI Administration Losartan Potassium 12.5 mg 05/30/19 09:00 06/02/19 08:12 Cozaar PO 12.5 mg DAILY KAYLI Administration Melatonin 3 mg 05/27/19 14:02 06/01/19 20:02 Melatonin PO 3 mg HSPRN PRN Administration Insomnia Sodium Chloride 10 ml 05/28/19 21:00 06/02/19 08:13 Flush - Normal Saline IVF 10 ml Q12HR KAYLI Administration Sodium Chloride 10 ml 05/28/19 14:14 05/31/19 02:56 Flush - Normal Saline IVF 10 ml PRN PRN Administration Saline Flush Spironolactone 12.5 mg 05/30/19 09:00 06/02/19 08:13 Aldactone PO 12.5 mg DAILY KAYLI Administration - Exam Eye: PERRL Heart: RRR, no murmur, no gallops, no rubs, normal peripheral pulses Respiratory: CTAB, no wheezes, no rales, no ronchi, normal chest expansion, no tachypnea, normal percussion Gastrointestinal: soft, non-tender, non-distended, normal bowel sounds, no palpable masses, no hepatomegaly Extremities: no cyanosis, no edema Hosp A/P (1) Metabolic encephalopathy Code(s): G93.41 - METABOLIC ENCEPHALOPATHY Status: Acute (2) Afib Code(s): I48.91 - UNSPECIFIED ATRIAL FIBRILLATION Status: Acute (3) HTN (hypertension) Code(s): I10 - ESSENTIAL (PRIMARY) HYPERTENSION Status: Acute (4) Hyponatremia Code(s): E87.1 - HYPO-OSMOLALITY AND HYPONATREMIA Status: Acute (5) UTI (urinary tract infection) Status: Acute - Plan * Metabolic encephalopathy-Not much improved- this * Hyponatremia- stable * UTI- urine culture is growing Enterobacter cloacea- Cipro for 2 more days * HTN- blood pressure is stable * AFIB- her heart rate is stable, and she is on Eliquis for CVA prevention * Awaiting [facility] transfer
[2019-06-02 15:25] VITALS: BP 158/74; TEMP 97.9
--- NOTE | 2019-06-02 22:53 | DIS ---
DATE OF ADMISSION: 05/27/2019 DATE OF DISCHARGE: 06/02/2019 DISCHARGE DISPOSITION: [facility]. DISCHARGE DIAGNOSES: 1. Metabolic encephalopathy. 2. Urinary tract infection. 3. 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 4. Hypertension. 5. Atrial fibrillation. 6. Coronary artery disease. DISCHARGE MEDICATIONS: Include: 1. Ciprofloxacin 500 mg one p.o. twice a day for 10 more days. 2. Digoxin 0.125 mg p.o. daily. 3. Norvasc 5 mg p.o. daily. 4. Amitriptyline 10 mg p.o. at bedtime. 5. Spironolactone 12.5 mg p.o. daily. 6. MiraLAX 17 g p.o. daily. 7. Losartan 12.5 mg p.o. daily. 8. Levothyroxine 88 mcg p.o. daily. 9. Carvedilol 25 mg p.o. twice a day. 10. Eliquis 2.5 mg p.o. daily. 11. Latanoprost one drop in each eye at bedtime. IMAGING: During the hospital stay, the patient had a CT scan of the brain showing no CT evidence of acute intracranial process. The patient had a shuntogram showing the patient does not have a [employer] shunt catheter. The patient had bilateral carotid Dopplers showing some soft plaque in the common carotid, as well as the carotid bifurcation. There is a component of calcified plaque also suspected in the internal carotid artery and there could be significant stenosis in the left internal carotid artery. The patient had a bilateral carotid Dopplers in which the ejection fraction was estimated at 50% to 55%. There was evidence of atrial fibrillation, as well as severe mitral regurgitation present. CODE STATUS: DNAR. ALLERGIES: AMIODARONE AND LACTOSE. HOSPITAL COURSE: Ms. Clifford is a pleasant 88-year-old female, who was admitted to the hospital with altered mental status and a fall. She initially had some symptoms that were concerning for transient ischemic attack. Therefore, she had a CT scan of the brain as well as carotid Dopplers and an echo done, these were essentially negative. She was found to have urinary tract infection and this was thought to be the source of her confusion. Urine cultures eventually grew enterobacter cloacae, which was sensitive to quinolones. She was treated for the infection. However, the patient continued to remain confused. Her dose of Elavil was decreased and Benadryl was also discontinued. It is unclear whether or not she has some underlying dementia with some episodes of sundowning, but her symptoms did not improve much over the course of her hospital stay and she was subsequently discharged to the group home facility for physical therapy and hopefully, her mental status will improve. Job ID: [id number]
== END 2019-06-02 16:40 | DRG 689 ==
LOC: ERS 12:20 → 2SE 14:08
PROVIDERS: ADMIT Internal Medicine; ATTEND Internal Medicine
DX: N39.0 Urinary tract infection, site not specified (principal); G93.41 Metabolic encephalopathy; E87.1 Hypo-osmolality and hyponatremia; F03.90 Unspecified dementia, unspecified severity, without behavioral disturbance, psychotic disturbance, mood disturbance, and anxiety; I10 Essential (primary) hypertension; Z51.5 Encounter for palliative care; I34.0 Nonrheumatic mitral (valve) insufficiency; W18.39XA Other fall on same level, initial encounter; E78.5 Hyperlipidemia, unspecified; I25.10 Atherosclerotic heart disease of native coronary artery without angina pectoris; R27.0 Ataxia, unspecified; I48.91 Unspecified atrial fibrillation; Z95.0 Presence of cardiac pacemaker
CPT/HCPCS: 36415; 36416; 51701; 70450; 71045; 75809; 80048; 80053; 81003; 81015; 82140; 82533; 82550; 83690; 83735; 83880; 83930; 83935; 84300; 84443; 84484; 85025; 87040; 87077; 87086; 87149; 87186; 93005; 93306; 93880; 96361; 96365; 96374; 96375; J0696; J0744; J1160; J1630; J1650; J3475; J3490; Q0163